=== PATIENT | male | born 2000 | race Caucasian/White ===

== ENCOUNTER 2023-06-16 19:17 | Emergency (ER) | payer BC | END 2023-06-16 20:10 | disposition home or self-care (01) | LOC: MW.ED 19:17 | DX: K08.89 Other specified disorders of teeth and supporting structures (principal) | CPT/HCPCS: 99282 ==

== ENCOUNTER 2024-11-29 09:20 | Emergency (ER) | payer BC ==
[2024-11-29] MEDS: Ondansetron 4 MG/2 ML SDV ONE (09:42)
[2024-11-29] MEDS: fentaNYL 50 MCG/ML SDV ONE ×2 (09:42→09:44)
[2024-11-29] MEDS: fentaNYL 50 MCG/ML SDV IVPUSH STA ×2 (09:42→09:43)
[2024-11-29] MEDS: Ondansetron 4 MG/2 ML SDV IVPUSH STA (09:42)
[2024-11-29] MEDS: Etomidate 2 MG/ML 20 ML SDV IVPUSH STA ×2 (09:44→09:50)
== END 2024-11-29 12:18 | disposition home or self-care (01) ==
LOC: MW.ED 09:20
DX: S83.015A Lateral dislocation of left patella, initial encounter (principal); F17.210 Nicotine dependence, cigarettes, uncomplicated; X50.0XXA Overexertion from strenuous movement or load, initial encounter; Y93.89 Activity, other specified
CPT/HCPCS: 27560; 73560; 96374; 96375; 99283; J2405; J3010; J3490; J7030; 27552